=== PATIENT | female | born 1955 | race Caucasian/White ===

== ENCOUNTER → 2016-10-20 | Outpatient (CLI) | payer BC ==
--- NOTE | ~2016-10-20 | MY11 ---
[facility] A Service of [facility] RADIOLOGY TEXT RESULTS PATIENT: TRI MEZA LOCATION: [facility] : 55 UNIT #: [id number] AGE: [address]: Cristy Santos SEX: F ORDER DR: [id number] [facility] [address] [place], [place] [address] [id number] O MR#: [id number] Acc #: [id number] NAME: TRI MEZA : 1955 SEX: F STUDY DATE/TIME: 10/20/2016 15:46 UNIT: [facility] ROOM: STUDY DESCRIPTION: MY Mammogram Screening Dig [place] Attending Physician: Cristy Santos A.P.R.N. Referring Physician: Cristy Santos A.P.R.N. Ordering Physician: Cristy Santos A.P.R.N. Primary Care Physician: Cristy Santos A.P.R.N. MEDICAL IMAGING REPORT This report is preliminary unless electronic signature is present EXAM Bilateral digital screening mammogram with CAD. DATE 10/20/2016 HISTORY 61-year-old female with no documented personal or family history of breast cancer or current complaints. COMPARISON Bilateral screening mammogram 06/09/2013, 03/17/2011, 02/04/2010. FINDINGS CC and MLO views were obtained of each breast utilizing digital technique and reviewed with an FDA-approved CAD device. Heterogeneously dense fibroglandular tissue is present bilaterally, greatest in the upper outer left breast. The parenchymal pattern does not appear significantly changed. No new or developing nodule is identified. There is no architectural distortion. There are benign calcifications within each breast, but no suspicious cluster of microcalcification is identified. IMPRESSION BIRADS category 2. Benign findings. Routine bilateral screening mammogram is recommended in 1 year. Patients over the age of 40 are entered into a reminder system with target due date for the next mammogram. A result letter will also be sent to the patient. BIRADS: 2 Benign finding. [facility] A Service of [facility] RADIOLOGY TEXT RESULTS PATIENT: TRI MEZA LOCATION: [facility] : 55 UNIT #: [id number] AGE: [address]: Cristy Santos SEX: F ORDER DR: Dictated by... Meredith Garay M.D. THIS IS AN ELECTRONICALLY VERIFIED REPORT eMredith Garay M.D. at 10/21/2016 9:41 AM RADHA/porter TD: 10/20/2016 17:01 JOB #: [id number] MEDICAL IMAGING REPORT Page 1 of 1 COPY
== END | disposition home or self-care (01) ==
LOC: CWCC 15:39
DX: Z12.31 Encounter for screening mammogram for malignant neoplasm of breast (principal)
CPT/HCPCS: G0202